=== PATIENT | female | born 1995 | race Caucasian/White ===

== ENCOUNTER 2017-02-12 20:16 | Emergency (ER) | payer OTHER ==
[~2017-02-12] VITALS: Wt 57.3 kg
[2017-02-12 22:46] LABS: URINE BLOOD (Dip) POC Negative (NEGATIVE)
[2017-02-12 23:23] LABS: ADD SCAN DIFF NO
--- NOTE | 2017-02-12 23:28 | RADRPT ---
PROCEDURE: ULTRASOUND LIMITED ABDOMEN CLINICAL INDICATION: 21-year-old female with abdominal pain. TECHNIQUE: Multiple sonographic of the right upper quadrant of the abdomen were obtained. The imag es were reviewed on a PACS workstation. COMPARISON: None. FINDINGS: The pancreas is partially visualized and is otherwise normal. The liver displays normal echogenicity. The liver measures 15.2 cm in length. No evidence of intrah epatic biliary ductal dilatation is seen. The portal and hepatic veins are unremarkable. The gallbladder demonstrates no wall thickening, sludge, nor stones. No pericholecystic fluid is see n. The common bile duct measures 3.1 mm and is not dilated. The right kidney displays normal echogenicity. The right kidney measures 11.6 cm in length. No calie ctasis or hydronephrosis is seen. No free fluid is seen. IMPRESSION: Unremarkable right upper quadrant abdominal ultrasound. .Ryan Damon MD, Date Time Electronically viewed and signed by .Ryan Damon MD, on 02/12/2017 23:28 .M/
[2017-02-12 23:29] LABS: BASOPHIL # 0.1 10^3/ul (0.0-0.1); BASOPHILS % 0.7 % (0.0-2.0); EOSINOPHILS # 0.2 10^3/ul (0.0-0.5); EOSINOPHILS % 2.1 % (0.0-7.0); HEMATOCRIT 36.1 % (37.0-47.0); HEMOGLOBIN 12.6 g/dl (12.0-16.0); LYMPHOCYTES # 2.1 10^3/ul (0.8-2.9); LYMPHOCYTES % 24.8 % (18.0-55.0); MEAN CORPUSCULAR HEMOGLOBIN 29.4 pg (29.0-33.0); MEAN CORPUSCULAR HGB CONC 34.9 g/dl (32.0-37.0); MEAN CORPUSCULAR VOLUME 84.1 fl (72.0-104.0); MEAN PLATELET VOLUME 11.5 fl (7.4-10.4); MONOCYTE # 0.7 10^3/ul (0.3-0.9); MONOCYTES % 8.3 % (0.0-13.0); NEUTROPHIL # 5.3 10^3/ul (1.6-7.5); NEUTROPHILS % 63.9 % (30.0-74.0); PLATELET COUNT 232 10^3/UL (140-415); RED BLOOD COUNT 4.29 10^6/ul (4.20-5.40); RED CELL DISTRIBUTION WIDTH 12.7 % (11.5-14.5); WHITE BLOOD COUNT 8.3 10^3/ul (4.8-10.8)
[2017-02-12 23:54] LABS: ALBUMIN/GLOBULIN RATIO 1.29; BILIRUBIN,INDIRECT 0.1 mg/dl (0-1.1); BILIRUBIN,TOTAL 0.1 mg/dl (0.2-1.3); CALCIUM 9.7 mg/dl (8.4-10.2); CREATININE 0.62 mg/dl (0.44-1.00); TOTAL PROTEIN 7.1 g/dl (6.1-8.1)
[2017-02-13] MEDS ORDERED: CALC300T4 PO (00:34)
[2017-02-13] MEDS ORDERED: CEPH-443 PO (00:34)
--- NOTE | 2017-02-13 00:42 | ERD ---
ER Documentation Chief Complaint Date/Time DATE: 02/13/17 TIME: 00:35 Chief Complaint abd pain, kong, 6 wks preg HPI Patient is a 21-year-old female approximately 6 weeks with past medical history of gastritis who presents to the emergency department with upper abdominal pain. She states that she developed the pain today. Patient states the pain is localized to her epigastric region occasionally radiates the right upper quadrant. Patient denies any right lower quadrant pain. Patient does report nausea and vomiting however this is been throughout her . Patient states that she had pizza last night for dinner. Patient denies any fever, chills, pain, shortness breath or loss consciousness. Patient is also complaining of suprapubic pain. Patient states she does have some pain with urination. Patient denies any vaginal bleeding or excessive vaginal discharge. Patient has not seen an [facility]VIS[facility] yet. ROS All systems reviewed and are negative except as per history of present illness. Medications Home Meds Active Scripts Cephalexin* (Keflex*) 500 Mg Capsule, 500 MG PO QID for 7 Days, CAP Prov:JONA BANDA PA-C 02/13/17 Calcium Carbonate* (Tums X-Str) 300 Mg Tab.chew, 300 MG PO TID, #1 BOT Prov:JONA BANDA PA-C 02/13/17 PMhx/Soc History of Surgery: No Anesthesia Reaction: No Hx Neurological Disorder: No Hx Respiratory Disorders: No Hx Cardiac Disorders: No Hx Psychiatric Problems: No Hx Miscellaneous Medical Probl: Yes (gastritis) Hx Alcohol Use: No Hx Substance Use: No Hx Tobacco Use: No Physical Exam Vitals Vital Signs Date Time Temp Pulse Resp B/P Pulse Ox O2 Delivery O2 Flow Rate FiO2 02/13/17 00:46 98.5 70 18 118/74 100 Room Air 02/12/17 20:32 98.8 82 20 129/73 98 Physical Exam GENERAL: Well-developed, well-nourished female. Appears in no acute distress. HEAD: Normocephalic, atraumatic. EYES: Pupils are equally reactive bilaterally. EOMs grossly intact. No conjunctival erythema. ENT: Moist mucous membranes. No uvula deviation. No kissing tonsils. NECK: Supple. No meningismus. Normal range of motion of the neck. LUNG: Clear to auscultation bilaterally. No rhonchi, wheezing, rales or coarse breath sounds. HEART: Regular rate and rhythm. No murmurs, rubs or gallops. ABDOMEN: No scars, ecchymosis or rashes noted. Soft and nondistended. Minimally tender in the epigastric region. Tender to palpation in the suprapubic region. Positive bowel sounds in all four quadrants. No rebound tenderness, no guarding. (-) McBurney's point tenderness. No CVA tenderness. BACK: No midline tenderness. EXTREMITIES: Equal pulses bilaterally. No peripheral clubbing, cyanosis or edema. No unilateral leg swelling. NEUROLOGIC: Alert and oriented. Moving all four extremities without any difficulty. Normal speech. Steady gait. SKIN: Normal color. Warm and dry. No rashes or lesions. Result Diagram: 02/12/17230702/12/178 Results 24 hrs Laboratory Tests Test 02/12/17 22:44 02/12/17 23:08 Bedside Urine Blood Negative Bedside Urine Glucose (UA) Negative Bedside Urine Ketones (LAB) Negative Bedside Urine Leukocyte Esterase (L Trace Bedside Urine Nitrite (LAB) Negative Bedside Urine Protein (LAB) Negative Bedside Urine pH (LAB) 7.0 Alanine Aminotransferase (ALT/SGPT) 21IU/L Albumin 4.0g/dl Albumin/Globulin Ratio 1.29 Alkaline Phosphatase 58IU/L Anion Gap 17 Aspartate Amino Transf (AST/SGOT) 16IU/L Basophils # 0.110^3/ul Basophils % 0.7% Blood Urea Nitrogen 7mg/dl Calcium Level 9.7mg/dl Carbon Dioxide Level 24mmol/L Chloride Level 103mmol/L Creatinine 0.62mg/dl Direct Bilirubin 0.00mg/dl Eosinophils # 0.210^3/ul Eosinophils % 2.1% Globulin 3.10g/dl Glucose Level 88mg/dl Hematocrit 36.1% Hemoglobin 12.6g/dl Indirect Bilirubin 0.1mg/dl Lipase 123U/L Lymphocytes # 2.110^3/ul Lymphocytes % 24.8% Mean Corpuscular Hemoglobin 29.4pg Mean Corpuscular Hemoglobin Concent 34.9g/dl Mean Corpuscular Volume 84.1fl Mean Platelet Volume 11.5fl Monocytes # 0.710^3/ul Monocytes % 8.3% Neutrophils # 5.310^3/ul Neutrophils % 63.9% Nucleated Red Blood Cells # 0.010^3/ul Nucleated Red Blood Cells % 0.0/100WBC Platelet Count 57178^3/UL Potassium Level 4.0mmol/L Red Blood Count 4.2910^6/ul Red Cell Distribution Width 12.7% Sodium Level 140mmol/L Total Bilirubin 0.1mg/dl Total Protein 7.1g/dl White Blood Count 8.310^3/ul Procedures/MDM ED COURSE: The patient was stable throughout ED course. I kept the patient and/or family informed of laboratory and diagnostic imaging results throughout the ED course. DIAGNOSTIC IMAGING: Read by radiologist. Patient: SOLE ANTOINE : 1995 Age: 21 Sex: F MR #: [id number] DOS: 02/12/17 2230 Ordering MD: JONA BANDA PA-C Location: [facility] Room/Bed: PROCEDURE: ULTRASOUND LIMITED ABDOMEN CLINICAL INDICATION: 21-year-old female with abdominal pain. TECHNIQUE: Multiple sonographic of the right upper quadrant of the abdomen were obtained. The images were reviewed on a PACS workstation. COMPARISON: None. FINDINGS: The pancreas is partially visualized and is otherwise normal. The liver displays normal echogenicity. The liver measures 15.2 cm in length. No evidence of intrahepatic biliary ductal dilatation is seen. The portal and hepatic veins are unremarkable. The gallbladder demonstrates no wall thickening, sludge, nor stones. No pericholecystic fluid is seen. The common bile duct measures 3.1 mm and is not dilated. The right kidney displays normal echogenicity. The right kidney measures 11.6 cm in length. No caliectasis or hydronephrosis is seen. No free fluid is seen. IMPRESSION: Unremarkable right upper quadrant abdominal ultrasound. .Ryan Damon MD, Date Time Electronically viewed and signed by .Ryan Damon MD, MD on 02/12/2017 23:28 .M/ CC: SOLO,JISSILLE PA-C MEDICAL DECISION MAKING: This is a 21-year-old female approximately 8 weeks , who presents emergency department for epigastric pain which started today. Vital signs were reviewed. Patient is afebrile. CBC showed no evidence of systemic infection or severe anemia. CMP showed no evidence of electrolyte abnormalities, severe acidosis, alkalosis, renal failure, or liver disease. Lipase showed no evidence of acute pancreatitis. Right upper quadrant ultrasound was negative. Urine today showed 1+ leukocyte estrase. Urine test was positive. Given that patient did not have any vaginal bleeding, there is no indication for a beta-hCG level or pelvic ultrasound at this time. Low suspicion for ectopic , threatened , incomplete . Patient will need to follow up with an OBGYN, referral list provided. At this time, patient's presentation is most consistent with epigastric pain likely due to gastritis and UTI. Unable to rule PUD at this time. I have a much lower clinical concern for acute coronary syndrome, AAA, mesenteric ischemia, lower lobe pneumonia, DKA, bowel perforation, bowel obstruction, cholecystitis, choledocholithiasis, ascending cholangitis, hepatic abscess, pancreatitis, pyelonephritis, nephrolithiasis, appendicitis, constipation, ectopic , PID or tubo-ovarian abscess. PRESCRIPTIONS: Keflex, TUMS DISCHARGE: At this time, patient is stable for discharge and outpatient management. I have instructed the patient to follow-up with his/her primary care physician/OBGYN in 1-2 days. Patient given OBGYN referral list. Patient advised to schedule an appointment with [facility] for routine care. I have instructed the patient to promptly return to the ER at any time for any new or worsening symptoms including increased pain, nausea, vomiting, diarrhea, fever, weakness or LOC. The patient and/or family expressed understanding of and agreement with this plan. All questions were answered. Home care instructions were provided. Departure Diagnosis: Primary Impression: UTI (urinary tract infection) Urinary tract infection type: site unspecified Hematuria presence: without hematuria Qualified Code: N39.0 - Urinary tract infection without hematuria, site unspecified Additional Impressions: Abdominal pain Abdominal location: epigastric Qualified Code: R10.13 - Epigastric pain Weeks of gestation: unspecified Qualified Code: Z33.1 - , unspecified gestational age Condition: Stable Patient Instructions: Abdominal Pain, Early Referrals: [facility] [place] [address] [facility] [address] [place] [address] OFFICE FAX , [facility] [address] [place] [address] DR. CORTES, [place] [address] [place] [address] DR MILLER, [facility] [address] [facility] [address], [place] [address] [address] [facility] [address] [facility] [place] [address] [facility] [address] [place] [address] [facility] [address] - DR LEWIS MILLIE [address], [place] [address] DR JONES, [place] [address] [facility]. [address], [place] [address] DR [facility] [address] [place], [place] [id number] Additional Instructions: Call your primary care doctor TOMORROW for an appointment during the next 1-2 days.See the doctor sooner or return here if your condition worsens before your appointment time. Follow up with her [facility] for further management including ultrasound and beta- hCG. JONA BANDA PA-C Feb 13, 2017 00:42
[2017-02-13 00:46] VITALS: BP 118/74; PULSE 70; RESP 18; TEMP 98.5
== END 2017-02-13 00:53 | disposition home or self-care (01) ==
LOC: FTE 20:16
DX: O23.41 Unspecified infection of urinary tract in pregnancy, first trimester (principal); R10.2 Pelvic and perineal pain; Z3A.08 8 weeks gestation of pregnancy
CPT/HCPCS: 36415; 76705; 80053; 81003; 83690; 85025; Z7502